=== PATIENT | female | born 1955 | race Two or more races ===

== ENCOUNTER 2021-11-03 15:04 | Emergency (ER) | payer MEDICARE, OTHER ==
[~2021-11-03] VITALS: Ht 170.2 cm; Wt 88.5 kg
[2021-11-03] MEDS ORDERED: ACETAMINOPHEN 325 MG TABLET PO ONE (15:30)
[2021-11-03] MEDS ORDERED: ACETAMINOPHEN 325 MG TABLET ONE (15:46)
--- NOTE | 2021-11-03 16:20 | NUR ---
FIRST CONTACT WITH PT. PATIENT IN 5B , WITH ORDERS ALREADY CARRIED OUT. PT AO X 4, HERE FOR R LEG PAIN. STARTED ON , PATIENT WAS CARRYING BOXES. SINCE THEN, PT WAS ALREADY SEEING CHIROPRACTOR. BUT TODAY, SHE PULLED HER R LEG WHILE WALKING DOWN [facility] AND MOMENTARILY LOST CONTROL OF R LEG AND THEN HAD SEVERE PAIN. NOT ON ACUTE DISTRESS DURING REST.
--- NOTE | 2021-11-03 16:36 | NUR ---
JUICE PROVIDED REQUESTED.
[2021-11-03] MEDS ORDERED: BACL10TA PO (16:39)
[2021-11-03] MEDS ORDERED: ACET-2154 PO (16:39)
--- NOTE | 2021-11-03 17:25 | NUR ---
Patient provided with R knee immobilizer and walker for ease of mobility. training performed. patient able to ambulate with steady gait. Patient discharged to home in stable condition. Written and verbal after care instructions given. Copies of xray results provided. Patient verbalizes understanding of instructions. Stressed follow up with PCP or return to ER for worsening s/s.
[2021-11-03 17:26] VITALS: BP 148/90
== END 2021-11-03 17:27 | disposition home or self-care (01) ==
LOC: ER 15:06
DX: M23.91 Unspecified internal derangement of right knee (principal); S89.91XA Unspecified injury of right lower leg, initial encounter; X50.9XXA Other and unspecified overexertion or strenuous movements or postures, initial encounter; Y92.89 Other specified places as the place of occurrence of the external cause
CPT/HCPCS: 73562; A4663

== ENCOUNTER 2023-10-15 14:12 | Emergency (ER) | payer MEDICARE, OTHER ==
[~2023-10-15] VITALS: Ht 165.1 cm; Wt 77.1 kg
[~2023-10-15 14:12] MED LIST: ACET-2154 PO; BACL10TA PO
[2023-10-15 14:51] VITALS: O2SAT 97
== END 2023-10-15 17:15 | disposition left against medical advice (07) ==
LOC: ER 14:12
DX: Z20.822 Contact with and (suspected) exposure to COVID-19 (principal); Z53.21 Procedure and treatment not carried out due to patient leaving prior to being seen by health care provider
CPT/HCPCS: A4606; A4663